=== PATIENT | female | born 1990 | race Caucasian/White ===

== ENCOUNTER → 2018-04-23 16:15 | Outpatient (CLI) | payer MEDICAID, SELFPAY ==
--- NOTE | 2018-04-23 | XR_ITS ---
XR finger RT min 2V CLINICAL INDICATION: Pain following injury ITS.REASON: RIGHT 5TH FINGER INJURY ORDERING PHYSICIAN: Kay Brizuela PATIENT AGE: 27 years Comparison: None FINDINGS: No bony or joint abnormality. IMPRESSION: Negative right fifth finger
== END ==
PROVIDERS: PCP Family Medicine; Visit Provider Nurse Practitioner Family
DX: S69.91XA Unspecified injury of right wrist, hand and finger(s), initial encounter (principal)
CPT/HCPCS: 73140

== ENCOUNTER → 2019-12-25 16:57 | Outpatient (CLI) | payer OTHER, SELFPAY ==
[2019-12-25 17:25] LABS: Basophils % 0.2 % (0.1-2.0); Eosinophils # 0.1 K/mm3 (0.0-0.4); Eosinophils % 1.9 % (0.1-12.0); Hematocrit 44.3 % (37.0-47.0); Hemoglobin 15.1 g/dL (12.2-16.2); Lymphocytes # 1.9 K/mm3 (0.7-4.5); Lymphocytes % 26.7 % (10-50); Mean Corpuscular Hemoglobin 31.4 pg (27.0-31.2); Mean Corpuscular Volume 92.4 fl (81-99); Monocytes # 0.3 K/mm3 (0.1-1.0); Monocytes % 4.4 % (1.7-9.3); Neutrophils # 4.8 K/mm3 (1.8-7.8); Neutrophils % 66.8 % (37.0-80.0); Platelet Count 221 K/mm3 (142-424); Red Blood Count 4.79 M/mm3 (4.20-5.40); Red Cell Distribution Width 13.4 % (11.5-17.5); White Blood Count 7.3 K/mm3 (4.8-10.8)
[2019-12-25 17:27] LABS: Chloride 107 mmol/L (98-107); Sodium 135 mmol/L (136-145)
[2019-12-25 17:28] LABS: Potassium 4.6 mmoL/L (3.5-5.1)
[2019-12-25 17:30] LABS: Alanine Aminotransferase 39 U/L (12-78); Alkaline Phosphatase 102 U/L (38-126); Anion Gap 10.6 mEq/L (5-15); Aspartate Amino Transferase 36 U/L (14-36); Bilirubin,Total 0.4 mg/dl (0.2-1.3); Blood Urea Nitrogen 7 mg/dl (7-17); Carbon Dioxide 22 mmol/L (22.0-30.0); Estimated Glomerular Filt Rate 146 ml/min (>60); GFR (African American) 177 ML/MIN (>60)
[2019-12-25 17:31] LABS: Albumin Level 4.3 g/dl (3.5-5.0); Albumin/Globulin Ratio 1.3 (1.1-1.8); Calcium 9.5 mg/dl (8.4-10.2); Chol/HDL Ratio 5.1 (1-3.5); Cholesterol 298 mg/dl (140-200); Globulin 3.4 g/dL (1.3-3.2); Glucose 104 mg/dl (74-100); HDL Cholesterol 59 mg/dl (40-60); Total Protein,Serum 7.7 g/dl (6.3-8.2); Triglycerides 178 mg/dl (30-150); VLDL Cholesterol 36 mg/dL (0-40)
[2019-12-25 17:41] LABS: Direct LDL Cholesterol 215.95 mg/dL (100-129)
[2019-12-25 17:47] LABS: T4 (Thyroxine) 9.7 ug/dl (5.53-11.0)
[2019-12-25 18:01] LABS: Thyroid Stimulating Hormone 1.32 uIU/mL (0.465-4.68)
[2019-12-31 16:29] LABS: 1,25 Dihydroxy Vitamin D 70 pg/mL (.); 1,25-Dihydroxy, Vitamin D-2 <10 pg/mL (.); 1,25-Dihydroxy, Vitamin D-3 70 pg/mL (.)
== END ==
PROVIDERS: Visit Provider Nurse Practitioner Family
DX: Z76.89 Persons encountering health services in other specified circumstances (principal); R53.83 Other fatigue; E67.3 Hypervitaminosis D; Z79.899 Other long term (current) drug therapy
CPT/HCPCS: 80053; 80061; 82652; 84436; 84443; 85025

== ENCOUNTER → 2021-04-20 12:49 | Outpatient (CLI) | payer OTHER, SELFPAY ==
--- NOTE | 2021-04-20 13:03 | MM_ITS ---
PROCEDURE: MM DIG MAMM BI DX W/CAD Digital Breast Tomosynthesis Included CLINICAL INDICATION: NIPPLE DISCHARGE There is a history of breast cancer in the patient's maternal great aunt. COMPARISON: This is a baseline exam, patient complaining of bilateral nipple discharge TECHNIQUE: Standard CC and MLO images and 3D Tomosynthesis was obtained. R2 CAD reviewed. Spot compression views of the circumareolar region were performed bilaterally. FINDINGS: Moderate fibroglandular densities are seen throughout both breasts. There are no CAD markings. There is asymmetric glandular elements upper portion of the left breast on MLO view but appear less worrisome on the CC view. However since this is a baseline study and in view of the history recommend the patient return for spot compression views and ultrasound if this proves to be a true lesion. There are no suspicious microcalcifications. There are no findings to suggest ductal hyperplasia in either breast IMPRESSION: Moderate breast density with possible asymmetric density with irregular borders left breast BI-RAD Category: 0 Need Additional Imaging Evaluation FOLLOW-UP: IMM Immediate Follow-up Recommended (A letter has been sent to the patient regarding results of the study.) Dictated by: Dr. Morro Canales MD 04/20/2021 14:38 Dr. Morro Canales MD in [place] 04/20/2021 14:38
== END ==
PROVIDERS: PCP Nurse Practitioner Family; Visit Provider Nurse Practitioner Family
DX: N64.52 Nipple discharge (principal)
CPT/HCPCS: 77062; 77066; G0279

== ENCOUNTER → 2021-05-13 16:02 | Outpatient (CLI) | payer OTHER, SELFPAY ==
--- NOTE | 2021-05-13 16:04 | US_ITS ---
PROCEDURE: US BREAST LT COMPLETE CLINICAL INDICATION: ABN MAMM OF LT BREAST COMPARISON: MG MM DIG MAMM BI DX W/CAD from 04/20/2021 FINDINGS: Ultrasound performed the left breast shows no suspicious nodules. No masses or cyst demonstrated. Small nodes are present in the axilla. Focal spot compression views were performed on the same day as the diagnostic mammogram. The area of asymmetry in the upper inner aspect of the left breast appears to compress out as fibroglandular tissue. IMPRESSION: BI-RADS category 3 probably benign. Recommend six-month mammographic follow-up with spot compression views regarding asymmetric density.. Dictated by: Thom Borjas MD 05/31/2021 11:59 Thom Borjas MD in [place] 05/31/2021 11:59
== END ==
PROVIDERS: PCP Nurse Practitioner Family; Visit Provider Nurse Practitioner Family
DX: R92.8 Other abnormal and inconclusive findings on diagnostic imaging of breast (principal)
CPT/HCPCS: 76641

== ENCOUNTER → 2021-05-13 16:24 | Outpatient (CLI) | payer OTHER, SELFPAY ==
[2021-05-13 18:08] LABS: Thyroid Stimulating Hormone 2.67 uIU/mL (0.465-4.68)
[2021-05-15 10:27] LABS: FSH 2.9 mIU/mL (.); LH 4.5 mIU/mL (.); Prolactin 6.7 ng/mL (4.8-23.3)
== END ==
PROVIDERS: Visit Provider Obstetrics & Gynecology
DX: R09.89 Other specified symptoms and signs involving the circulatory and respiratory systems (principal); N92.6 Irregular menstruation, unspecified
CPT/HCPCS: 36415; 83001; 83002; 84146; 84443

== ENCOUNTER 2021-12-01 01:58 | Emergency (ER) | payer OTHER, SELFPAY ==
[2021-12-01 02:17] VITALS: BP 129/67; PULSE 93; RESP 16; TEMP 36.6; O2SAT 98; BMI 34.0
--- NOTE | 2021-12-01 03:32 | HMH.EDSKAF ---
ED Disposition Clinical Impression: Eczema Qualifiers: Eczema type: unspecified Qualified Code(s): L30.9 - Dermatitis, unspecified Atopic dermatitis Qualifiers: Atopic dermatitis type: unspecified Qualified Code(s): L20.9 - Atopic dermatitis, unspecified Disposition: Home, Self-Care Condition on Discharge: Good Instructions: DI for Atopic Dermatitis-Adult Additional Instructions: use meds and see pcp for follow up Prescriptions: Loratadine [Claritin 10mg Tablet] 10 mg PO DAILY #30 tab Transmission Status: Pending to [facility] predniSONE [Prednisone 20mg Tab] 20 mg PO BID #10 tab Transmission Status: Pending to [facility] Referrals: Alon Nelson MD [Primary Care Provider] - - Critical Care Critical Care Time: No Attestation: On 12/01/21, the high probability of a clinically significant, sudden or life threatening deterioration of the following system(s) required my full and direct attention, intervention and personal management. The time I documented below is in addition to time spent performing reported procedures but includes the following listed in this critical care notation. Medical Decision Making - Medical Records Medical records reviewed: Yes: I reviewed the patient's medical records. - Sawyer Inquiry Pt receiving controlled substance: No Vital Signs: 12/01/21 02:17 Temperature 98 F Temperature Source Oral Pulse Rate [Right Brachial] 93 H Respiratory Rate 16 Blood Pressure [Right Arm] 129/67 Blood Pressure Mean [Right Arm] 87 Blood Pressure Source [Right Arm] Automatic Cuff Blood Pressure Position [Right Arm] Sitting 02 Sat by Pulse Oximetry 98 Oxygen Delivery Method Room Air - Lab Data Lab results reviewed: Yes: I reviewed the patient's lab results. Orders (Tests/Meds): ED MEDICATIONS Discontinued Medications Generic Name Dose Route Start Last Admin Trade Name Freq PRN Reason Stop Dose Admin Famotidine 20 mg 12/01/21 02:26 12/01/21 02:27 Famotidine 20mg Tablet PO 12/01/21 02:27 20 mg ONCE ONE Administration Prednisone 40 mg 12/01/21 02:25 12/01/21 02:26 Prednisone 20mg Tab PO 12/01/21 02:26 40 mg ONCE ONE Administration Medical Decision Narrative: rash of flexor area - prob eczems or atopic dermatitis Skin/Abscess/FB HPI - General Chief complaint: Skin/Abscess/Foreign Body Stated complaint: rash, burning Time Seen by Provider: 12/01/21 03:32 Mode of Arrival: Ambulatory Source of Information: Patient, Medical Record Limitations: No Limitations Description of Symptoms (Recalled from ER Triage Doc. by RN): C/o rash since yesterday am. States rash burning and itching. - History of Present Illness HPI narrative: pt with rash to upper ext forearms and popiteal of knee - no fever or known exposure to allergens and no mm lesions - uses otc meds MD complaint: rash Onset (ago): day(s) Tetanus up to date: unsure Location: LUE, RUE, LLE, RLE Severity: moderate Associated symptoms: itching Treatments prior to arrival: OTC topical medication - Related Data Home Medications Medication Instructions Recorded Confirmed quetiapine 100 mg tablet 100 mg PO HS 05/13/21 05/13/21 Previous Rx's Medication Instructions Recorded Azithromycin [Z-Primo 250mg Tab*] 250 mg PO UD DOSE PK #6 tab 09/07/21 Brompheniramine/Pseudoephed/Dm 5 ml PO Q6HP PRN #240 ml 09/07/21 [Bromfed Dm Cough Syrup] Loratadine [Claritin 10mg 10 mg PO DAILY #30 tab 12/01/21 Tablet] predniSONE [Prednisone 20mg 20 mg PO BID #10 tab 12/01/21 Tab] Allergies Allergy/AdvReac Type Severity Reaction Status Date / Time tramadol [From ULTRAM] Allergy Unknown Verified 05/13/21 15:15 [facility] History - Hepatitis A Screen Attestation statement:: This patient has been screened for Hepatitis A risk factors. I have reviewed the patient's past medical history: Yes Medical History: Reports:: Anxiety, Depression Denies:: Zahida
[2021-12-01 03:49] VITALS: BP 121/83; PULSE 89; RESP 16; TEMP 36.6; O2SAT 98
== END 2021-12-01 03:50 | disposition home or self-care (01) ==
PROVIDERS: Emergency Provider Emergency Medicine; PCP Internal Medicine Adolescent Medicine
DX: L30.9 Dermatitis, unspecified (principal); L20.9 Atopic dermatitis, unspecified; F17.210 Nicotine dependence, cigarettes, uncomplicated
CPT/HCPCS: 99283

== ENCOUNTER → 2022-09-22 14:19 | Outpatient (CLI) | payer OTHER, SELFPAY ==
--- NOTE | 2022-09-22 14:30 | XR_ITS ---
FINAL REPORT CLINICAL HISTORY: LOW BACK PAIN FINDINGS: LUMBAR SPINE Note the exam was performed on September 22, 2022 and submitted for interpretation on October 05, 2022. 5 views of the lumbar spine were obtained. There is no evidence of fracture or dislocation. The vertebral alignment is normal. Disc spaces are preserved. No paraspinous soft tissue abnormalities identified. IMPRESSION: No acute bony abnormality. Reviewed, Interpreted and Dictated by Dominik Colindres III, MD Transcribed by Roxanne Kong Authenticated and . [facility]
== END ==
PROVIDERS: PCP Internal Medicine Adolescent Medicine; Visit Provider Internal Medicine Adolescent Medicine
DX: M54.59 Other low back pain (principal)
CPT/HCPCS: 72110

== ENCOUNTER 2023-06-03 01:33 | Emergency (ER) | payer OTHER, SELFPAY ==
[2023-06-03 01:42] VITALS: BP 116/80; PULSE 117; RESP 18; TEMP 36.5; O2SAT 98; BMI 29.9
--- NOTE | 2023-06-03 01:42 | HMH.EDGENADL ---
Discharge Plan Disposition Patient Disposition: Home, Self-Care Condition: Good Prescriptions Prescriptions: No Action quetiapine [Seroquel] 100 mg tablet 100 mg PO HS azithromycin 250 MG tablet 250 mg PO UD DOSE PK Qty: 6 0RF Rx Instructions: Take two (2) tablets today, then one (1) tablet days #2 thru #5 [id number] 118 ML syrup 5 ml PO Q6HP PRN (Reason: Cough) Qty: 240 0RF prednisone 20 MG tablet 20 mg PO BID Qty: 10 0RF loratadine 10 MG tablet 10 mg PO DAILY Qty: 30 0RF Referrals Follow up/Referrals: Sree Mckinnon MD [Primary Care Provider] - See instructions Clinical Impressions Clinical Impression: Medical clearance for incarceration Discharge ED Provider: Saleem Hendrickson General Adult HPI General Stated complaint: Medical Clearance,Blood Draw Time Seen by Provider: 06/03/23 01:42 History of Present Illness HPI narrative: Patient has a PMHx significant for substance use disorder who presents to the ED with complaints of medical clearance. Patient was arrested by police department this afternoon after driving under the influence. Patient was found to have possession of marijuana and methamphetamines in the car. Patient denies any ingestion. Patient was brought into the ED for half-way clearance and legal drug testing by police. Patient has no acute complaints. Related Data Home Medications Medication Instructions Recorded Confirmed quetiapine 100 mg tablet (Seroquel) 100 mg PO HS 05/13/21 05/13/21 Previous Rx's Medication Instructions Recorded azithromycin 250 mg tablet 250 mg PO UD DOSE PK #6 tabs 09/07/21 [id number]-[id number]-[id number] 5 ml PO Q6HP PRN Cough #240 mL 09/07/21 2 mg-30 mg-10 mg/5 mL oral syrup loratadine 10 mg tablet 10 mg PO DAILY #30 tabs 12/01/21 prednisone 20 mg tablet 20 mg PO BID #10 tabs 12/01/21 Allergies Allergy/AdvReac Type Severity Reaction Status Date / Time tramadol [From ULTRAM] Allergy Unknown Verified 05/13/21 15:[address] [facility] Disclaimer: The information contained in this section may have been updated after the patient was seen, as this information can be updated by other users. Social History Smoking Status: Current every day smoker tobacco type: cigarettes packs per day: 1 alcohol intake: never substance use type: former substance user and marijuana current occupational status: unemployed and other Travel in the last 8 weeks: None number of children: 2 ROS Obtained: Yes All systems reviewed & no additional complaints except as documented Physical Exam General General appearance: alert and in no apparent distress Head Head exam: atraumatic, normocephalic and normal inspection Eye Eye exam: Present normal appearance, PERRL and EOMI; Absent scleral icterus or nystagmus ENT ENT exam: Present normal exam, mucous membranes moist and normal external ear exam Neck Neck exam: Present normal inspection, full ROM and trachea midline Chest Chest inspection: Present normal inspection and symmetric chest wall rise; Absent tenderness Respiratory Respiratory exam: Present normal lung sounds bilaterally; Absent respiratory distress, wheezes or accessory muscle use Cardiovascular Cardiovascular exam: Present regular rate, normal rhythm and normal heart sounds Abdominal Exam Abdominal exam: Present soft; Absent distention, tenderness, guarding, rebound, rigidity, trauma, ascites or pulsatile mass Extremities Exam Extremities exam: Present normal inspection and full ROM; Absent tenderness Back Exam Back exam: Present normal inspection and full ROM; Absent tenderness Neurological Exam Neurological exam: Present alert, oriented X3 and normal gait; Absent motor sensory deficit Psychiatric Psychiatric exam: Present normal affect and normal mood Skin Skin exam: Present warm, dry and normal color Medical Decision Making Medical Records Medical records reviewed: Yes I reviewed the patient's m
[2023-06-03 01:52] VITALS: BP 134/79; PULSE 110; RESP 20; TEMP 36.6; O2SAT 99
--- NOTE | 2023-06-03 03:55 | PC.NURSE ---
in room talking with patient at this time.
== END 2023-06-03 02:19 | disposition home or self-care (01) ==
LOC: ER 01:46
PROVIDERS: Emergency Provider Emergency Medicine; PCP Internal Medicine Adolescent Medicine
DX: Z00.8 Encounter for other general examination (principal)
CPT/HCPCS: 99282